=== PATIENT | male | born 2000 | race Caucasian/White ===

== ENCOUNTER 2024-09-09 11:48 | Outpatient (REF) | payer MEDICAID, SELFPAY ==
[2024-09-09 13:32] LABS: Hematocrit 42.0 % (42.0-52.0); Hemoglobin 14.3 g/dl (14.0-18.0); Imm Gran Abs Auto 0.01 X10*3/uL (0.00-0.03); Imm Gran Pct Auto 0.2 % (0.0-0.4); Lymphocytes Absolute Auto 1.4 X10*3/uL (1.2-4.9); MANUAL DIFF FLAG SCAN; Mean Corpuscular HGB Conc 34.0 g/dl (31.0-36.0); Mean Corpuscular Hemoglobin 29.5 pg (27.0-33.0); Mean Corpuscular Volume 86.6 fL (80.0-98.0); NRBC Abs Auto 0.000 X10*3/uL (0.0-0.012); NRBC Pct Auto 0.0 /100WBC (0.0-0.2); Platelet Count 191 X10*3/uL (160-400); Red Blood Count 4.85 X10*6/uL (4.60-5.80); SCAN SMEAR FLAG 1; White Blood Count 5.1 X10*3/uL (4.8-10.8)
[2024-09-09 13:54] LABS: Alanine Aminotransferase 18 U/L (0-40); Albumin Level 5.1 g/dL (3.5-5.0); Alkaline Phosphatase 65 U/L (39-117); Anion Gap 11 (12-20); Aspartate Amino Transferase 25 U/L (5-37); Blood Urea Nitrogen 13 mg/dL (9-16); Calcium 9.9 mg/dL (8.4-10.2); Carbon Dioxide 26 mmol/L (22-29); Chloride 105 mmol/L (96-108); Estimated Glomerular Filt Rate > 60; Potassium 3.3 mmol/L (3.3-5.1); Sodium 139 mmol/L (135-145); Total Protein 9.2 g/dL (6.5-8.0)
[2024-09-09 14:00] LABS: Syphilis Screen Nonreactive (Nonreactive)
[2024-09-09 14:03] LABS: HBS Num1 4.12 mIU/mL (0-7.99); HBc Num1 0.07 S/CO (0.00-0.79); HBsAGNum1 0.41 S/CO (0.00-0.99); Hepatitis B Surface Antigen Negative (Negative); ~HepC Num1 0.11 S/CO (0.00-0.79); ~Hepatitis B Surface Antibody NONREACTIVE (Nonreactive); ~Hepatitis C Antibody Nonreactive (Nonreactive)
[2024-09-09 15:41] LABS: CT PCR Urine NOT DETECTED (Not Detect.); NG PCR Urine NOT DETECTED (Not Detect.)
[2024-09-10 06:22] LABS: Rubeola IgG (Measles) 116.00 AU/mL
[2024-09-11 04:11] LABS: ~Hepatitis A Antibody IgG 5.52 S/CO (0.00-0.99)
[2024-09-12 08:19] LABS: TS Negative Control Passed; TS Panel A 0; TS Panel B 1; TS Positive Control Passed; TSpotTB Negative (Negative)
[2024-09-12 20:33] LABS: HIV RNA PCR Qn Copies 400 Copies/mL; HIV RNA PCR Qn Log Copies 2.60 Log cps/mL
[2024-09-13 16:17] LABS: Absolute CD3 Count 977 cells/uL (840-3060); Absolute CD8 Count 654 cells/uL (180-1170); Percent CD3 Cells 75 % (57-85); Percent CD8 Cells 50 % (12-42)
[2024-09-24 03:39] LABS: Date Viral Load Collected NG; Dolutegravir Resistance NOT PREDICTED; HIV-1 Bictegravir Resistance NOT PREDICTED; HIV-1 Cabotegravir Resistance NOT PREDICTED; HIV-1 Elvitegravir Resistance NOT PREDICTED; Raltegravir Resistance NOT PREDICTED; Value of Last HIV Viral Load NG copies/mL
== END 2024-09-09 11:49 | disposition home or self-care (01) ==
LOC: HO.HHCL 11:48
PROVIDERS: Visit Provider Emergency Medicine
DX: Z11.3 Encounter for screening for infections with a predominantly sexual mode of transmission (principal); B20 Human immunodeficiency virus [HIV] disease; Z11.59 Encounter for screening for other viral diseases; Z11.1 Encounter for screening for respiratory tuberculosis; Z01.84 Encounter for antibody response examination
CPT/HCPCS: 36415; 80053; 85025; 86359; 86360; 86481; 86704; 86706; 86708; 86735; 86762; 86765; 86777; 86778; 86780; 86787; 86803; 87340; 87491; 87536; 87591; 87900; 87901; 87906

== ENCOUNTER 2024-11-12 13:33 | Outpatient (REF) | payer MEDICAID, SELFPAY ==
--- OUTSIDE RECORDS SUMMARY | 2024-11-12 17:07 | XMS_ITS | Clinical Summary ---
Demographics Address [address] [place] [address] Home Phone Preferred Language Swedish Marital Status Unknown Orthodox Affiliation Unknown Race Unknown Ethnic Group Unknown Author Organization [facility] Address [address] [place] [address] Care Team Providers Care Certified Professional Controller Name Role Phone Unavailable Primary Care Provider Unavailabl e Source Comments PLEASE NOTE, if this patient is a minor, it may be UNLAWFUL to discuss sensitive information that is contained in these records (such as FAMILY PLANNING, MENTAL HEALTH or SUBSTANCE ABUSE) with the minor patient's parent or other person without the patient's specific authorization.[facility] Social History Tobacco Use Types Packs/Day Years Used Date Smoking Tobacco: Never Assessed Sex and Gender Information Value Date Recorded Sex Assigned at Male 10/20/2024 6:58 AM PDT Legal Sex Male 6:58 AM PDT Gender Identity Male 10/20/2024 6:58 AM PDT Sexual Orientation Not on file Plan of Treatment Upcoming Encounters Date Type Department Care Team (Late st Contact Info) Description 12/31/2024 1:00 PM EST Behavioral Health Visit [facility] [address] [place] [phone] Sherri Leija APRN [address] [place] [address] Health Maintenance Due Date Last Done Comments Anxiety Screening 2001 Tobacco Screening 2001 HIV Screening 2016 Hypertension Screening (#1) 12/04/2019 Imm-DTaP/Tdap/Td (7 - Td or Tdap) 07/28/2023 07/27/2013, 07/27/2013, 06/21/2006, Additional history exists Alcohol and Drug Screen 02/19/2024 Depression Annual Screen 02/19/2024 [id number] ( season) 2024 Imm-Influenza (#1) 2024 2018, 12/21/2005 Imm-Hepatitis B Completed 10/20/2002, 06/18, 04/02/2002 Imm-Varicella Completed 06/21/2006, 06/04/2003 Imm-HPV Completed 07/08/2014, 07/20, 06/09/2013 Hepatitis C Screening Completed 09/09/2024 Insurance [facility]
[2024-11-13 21:10] LABS: C. Trachomatis RNA TMA, Throat NOT DETECTED (NOT DETECTED); C.Trachomatis RNA TMA, Rectal NOT DETECTED (NOT DETECTED); N. gonorrhoeae RNA TMA, Throat NOT DETECTED (NOT DETECTED); N.Gonorrhoeae RNA TMA, Rectal NOT DETECTED (NOT DETECTED)
== END 2024-11-12 13:34 | disposition home or self-care (01) ==
LOC: HO.HHCL 13:33
PROVIDERS: PCP Nurse Practitioner Primary Care; Referring Provider Internal Medicine; Visit Provider Student in an Organized Health Care Education/Training Program
DX: Z00.00 Encounter for general adult medical examination without abnormal findings (principal); Z11.3 Encounter for screening for infections with a predominantly sexual mode of transmission; Z11.8 Encounter for screening for other infectious and parasitic diseases
CPT/HCPCS: 87491; 87591

== ENCOUNTER 2024-11-17 13:10 | Outpatient (REF) | payer MEDICAID, SELFPAY ==
--- NOTE | ~2024-11-17 | US_ITS ---
EXAMINATION: US DIAGNOSTIC ULTRASOUND BREAST, LEFT CLINICAL INFORMATION: 23 years old male with left breast areola swelling and mass.. COMPARISON: None available. FINDINGS: Targeted ultrasound of the left breast was performed at the location of the clinical concern. Limited images of the similar region of the right breast were also obtained for comparison purpose. The survey of the left breast nipple-areolar complex shows ill-defined hypoechoic area in the subareolar region, mildly more prominent than contralateral side. No suspicious masses. US/US breast LT limited IMPRESSION: Left breast: Sonographic findings could represent mild early gynecomastia. Clinical follow-up is recommended. If the clinical concern persists, recommend surgical consult. Results are provided to the patient at time of visit by the technologist. ASSESSMENT: BIRADS: Category 2: Benign Electronically signed by: Hanh Baird MD 11/17/2024 05:53 PM EDT
--- OUTSIDE RECORDS SUMMARY | 2024-11-17 14:25 | XMS_ITS | Clinical Summary ---
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 Phone Unavailable Primary Care Provider [...] EST Behavioral Health Visit [facility] [address] [place] [phone] Sherri Leija APRN [address] [place] [address] Health Maintenance Due Date Last Done Comments Anxiety Screening 2001 Tobacco Screening 2001 HIV Screening 2016 Hypertension Screening (#1) 12/04/2019 Imm-DTaP/Tdap/Td (7 - Td or Tdap) 07/28/2023 07/27/2013, 07/27/2013, 06/21/2006, Additional history exists Alcohol and Drug Screen 02/19/2024 Depression Annual Screen 02/19/2024 [id number] ( season) 2024 Imm-Influenza (#1) 2024 2018, 12/21/2005 Imm-Hepatitis B Completed 10/20/2002, 06/18, 04/02/2002 Imm-Varicella Completed 06/21/2006, 06/04/2003 Imm-HPV Completed 07/08/2014, 07/20, 06/09/2013 Hepatitis C Screening Completed 09/09/2024 Insurance [facility] [place] [id number]
== END 2024-11-17 13:11 | disposition home or self-care (01) ==
LOC: HO.MAMMO 13:10
PROVIDERS: Absent Provider Student in an Organized Health Care Education/Training Program; PCP Nurse Practitioner Primary Care; Visit Provider Nurse Practitioner Primary Care
DX: R22.2 Localized swelling, mass and lump, trunk (principal)
CPT/HCPCS: 76642

== ENCOUNTER → 2024-11-17 14:00 | Outpatient (BNV) | payer MEDICAID, SELFPAY | PROVIDERS: Absent Provider Student in an Organized Health Care Education/Training Program; PCP Nurse Practitioner Primary Care; Visit Provider Radiology Body Imaging | DX: N63.42 Unspecified lump in left breast, subareolar (principal) | CPT/HCPCS: 76642 ==

== ENCOUNTER 2025-01-21 10:45 | Outpatient (REF) | payer MEDICAID, SELFPAY ==
[2025-01-21 13:18] LABS: MANUAL DIFF FLAG NO
[2025-01-21 13:39] LABS: Hematocrit 41.1 % (42.0-52.0); Hemoglobin 13.7 g/dl (14.0-18.0); Imm Gran Abs Auto 0.01 X10*3/uL (0.00-0.03); Imm Gran Pct Auto 0.2 % (0.0-0.4); Lymphocytes Absolute Auto 1.1 X10*3/uL (1.2-4.9); Mean Corpuscular HGB Conc 33.3 g/dl (31.0-36.0); Mean Corpuscular Hemoglobin 30.4 pg (27.0-33.0); Mean Corpuscular Volume 91.1 fL (80.0-98.0); NRBC Abs Auto 0.000 X10*3/uL (0.0-0.012); NRBC Pct Auto 0.0 /100WBC (0.0-0.2); Platelet Count 240 X10*3/uL (160-400); Red Blood Count 4.51 X10*6/uL (4.60-5.80); White Blood Count 5.8 X10*3/uL (4.8-10.8)
[2025-01-21 14:18] LABS: Alanine Aminotransferase 18 U/L (0-40); Albumin Level 4.9 g/dL (3.5-5.0); Alkaline Phosphatase 76 U/L (39-117); Anion Gap 13 (12-20); Aspartate Amino Transferase 52 U/L (5-37); Blood Urea Nitrogen 9 mg/dL (9-16); Calcium 9.7 mg/dL (8.4-10.2); Carbon Dioxide 29 mmol/L (22-29); Chloride 106 mmol/L (96-108); Estimated Glomerular Filt Rate > 60; Potassium 4.0 mmol/L (3.3-5.1); Sodium 144 mmol/L (135-145); Total Protein 8.3 g/dL (6.5-8.0)
[2025-01-23 04:53] LABS: HIV RNA PCR Qn Copies 75 copies/mL (NOT DETECTED); HIV RNA PCR Qn Log Copies 1.88 (NOT DETECTED)
[2025-01-26 14:49] LABS: Absolute CD3 Count 786 cells/uL (840-3060); Absolute CD8 Count 505 cells/uL (180-1170); Percent CD3 Cells 71 % (57-85); Percent CD8 Cells 46 % (12-42)
== END 2025-01-21 10:46 | disposition home or self-care (01) ==
LOC: HO.HHCL 10:45
PROVIDERS: PCP Student in an Organized Health Care Education/Training Program; Referring Provider Internal Medicine; Visit Provider Student in an Organized Health Care Education/Training Program
DX: Z00.00 Encounter for general adult medical examination without abnormal findings (principal); Z21 Asymptomatic human immunodeficiency virus [HIV] infection status
CPT/HCPCS: 36415; 80053; 83036; 84443; 85025; 86359; 86360; 87536